=== PATIENT | female | born 1955 | race Caucasian/White ===

== ENCOUNTER 2024-11-18 09:49 | Emergency (ER) | payer MEDICARE, BC ==
[~2024-11-18] VITALS: Ht 167.6 cm; Wt 100.2 kg
[2024-11-18] MEDS ORDERED: CLEOCIN HCL300 MG PO (11:12)
[2024-11-18] MEDS ORDERED: CEPHALEXIN500 M1 PO (11:12)
[2024-11-18] MEDS ORDERED: clindamycin HCL 300 MG CAP PO ONE (11:15)
[2024-11-18] MEDS ORDERED: CEPHALEXIN MONOHYDRATE 500 MG CAP PO ONE (11:15)
[2024-11-18 11:30] VITALS: BP 116/85
== END 2024-11-18 11:34 | disposition home or self-care (01) ==
LOC: ED 09:49
DX: L03.114 Cellulitis of left upper limb (principal); Z88.0 Allergy status to penicillin; Z88.2 Allergy status to sulfonamides
CPT/HCPCS: 99283; A9270